=== PATIENT | female | born 1965 | race Caucasian/White ===

== ENCOUNTER → 2021-03-31 | Outpatient (CLI) | payer BC ==
[~2021-03-31] MED LIST: CATHETER FLUSH 10 ML SYR IV PRN; GADOBUTROL 15 MMOL/15 ML (GADAVIST) VIAL IV ONE; HEParin (CENTRAL IV FLUSH) 500 UNIT/5 ML SYR ONE
--- NOTE | 2021-03-31 14:36 | Diagnostic Imaging Report ---
MUGA scan INDICATION: Cardiotoxicity, baseline MUGA exam COMPARISON: There are no prior exams available for comparison. FINDINGS: This study was performed following intravenous administration of 29.0 mCi of tagged red blood cells. There is generalized distribution of the radiotracer throughout the cardiac system. The ejection fraction is 67%. IMPRESSION: The ejection fraction is 67%. Dictated by: Dictated on workstation # [id number]
--- NOTE | 2021-03-31 17:41 | Diagnostic Imaging Report ---
TECHNIQUE: Utilizing 1.5 Mikki magnet, patient was placed in a prone position with 8-channel dual breast coil utilized. Axial STIR precontrasted image and axial T1 fat-sat postcontrast high-resolution images obtained. Axial T2-weighted images precontrast, bilaterally, as well. Axial vibrant temporal images were obtained pre and post contrast with bolus technique utilized of gadolinium. Images are postcontrast immediately and subsequently for 7 minutes. Pre and post contrasted images are then evaluated with Whois for evaluation of possible angiogenesis. Sagittal postcontrast imaging also reviewed. INDICATION: Current history of right breast cancer COMPARISONS: 03/04/2021 and 01/19/2021. FINDINGS: The bilateral breasts demonstrate moderate background glandularity. The bilateral breasts demonstrate mild background enhancement. No significant axillary or internal mammary adenopathy. Mild edema noted within the left axillary region with significant signal dropout within the left axilla and left chest wall. This is felt to relate to soft tissue gas from recent chest tube. Small dependently layering left pleural effusion is also identified. Left-sided Port-A-Cath is present. A 5.2 x 1.6 x 2.5 cm enhancing mass lesion is noted within the posterior to middle depth of the right breast at approximately 8-9 o'clock. This appears to be in a segmental distribution. Additional foci of enhancement are seen in this segmental distribution extending anterior to this mass extending towards the nipple. Including this additional suspicious segmental non-mass enhancement, this entire region measures near 8 cm in anterior to posterior dimension. There is no clear fat plane between this enhancing mass and the underlying right pectoralis musculature with very minimal enhancement of the most anterior fibers of the right pectoralis musculature noted. This mass lesion is underlying the skin surface laterally by approximately 3 mm. This mass demonstrates predominantly progressive kinetics. Scattered foci of enhancement are noted throughout the left breast without suspicious mass or non-mass enhancement within the left breast. IMPRESSION: 5.2 x 2.5 cm enhancing mass within the lateral aspect of the right breast is consistent with biopsy-proven malignancy. Additional non-mass enhancement extending anterior to this location for a total dimension of near 8 cm in a segmental distribution likely relates to additional malignancy throughout the majority of the lateral right breast. Minimal enhancement of the most anterior fibers of the right pectoralis musculature is concerning for malignant invasion of the right pectoralis muscle by the immediately overlying biopsy-proven neoplasm. No evidence of malignancy within the left breast with edema and soft tissue gas within the left chest wall felt to relate to recent postprocedural changes. Small left pleural effusion. BI-RADS Category 6: Known malignancy Follow-up: Continued surgical consultation for known extensive malignancy within the right breast. ACR BI-RADS Category 6: Known biopsy proven malignancy. Result letter will be mailed to the patient. Note: At least 10% of breast cancer is not imaged by mammography. Dictated by: Dictated on workstation # [id number]
== END ==
LOC: CARD 03-26 13:00
PROVIDERS: ATTEND Internal Medicine Hematology & Oncology
DX: C50.411 Malignant neoplasm of upper-outer quadrant of right female breast (principal); J90 Pleural effusion, not elsewhere classified
CPT/HCPCS: 78472; A9560; C8908; 77049

== ENCOUNTER → 2021-06-19 | Outpatient (CLI) | payer BC ==
--- NOTE | 2021-06-19 11:57 | Diagnostic Imaging Report ---
Indication: Right breast cancer. Correlation is made with outside ultrasound from [facility] performed 03/04/2021. Sonographic interrogation upper outer right breast was performed. Previously noted hypoechoic mass 10:00 location, 5-6 images from the nipple is again noted, measuring 3.0 x 1.0 x 2.5 cm. This compares with 3.0 x 1.0 x 3.2 cm on prior exam. No new mass is detected. IMPRESSION: BI-RADS Category 6 Stable to perhaps slight decrease in size of known right breast malignancy at 10:00 location when compared with prior study from 03/04/2021. Dictated by: Dictated on workstation # [id number]
== END ==
LOC: RAD 10:45
PROVIDERS: ATTEND Internal Medicine Hematology & Oncology
DX: C50.411 Malignant neoplasm of upper-outer quadrant of right female breast (principal)
CPT/HCPCS: 76641

== ENCOUNTER → 2022-01-13 | Outpatient (RCR) | payer BC | END | disposition home or self-care (01) | LOC: ONC 12-16 08:30 | PROVIDERS: ATTEND Radiology Radiation Oncology | DX: Z51.0 Encounter for antineoplastic radiation therapy (principal); C50.411 Malignant neoplasm of upper-outer quadrant of right female breast | CPT/HCPCS: 77280; 77290; 77295; 77300; 77307; 77334; 77336; 77417; 77470; 99205 ==

== ENCOUNTER 2022-01-21 15:17 | Outpatient (RCR) | payer BC | END 2022-02-13 | disposition home or self-care (01) | LOC: ONC 15:17 | PROVIDERS: ATTEND Radiology Radiation Oncology | DX: Z51.0 Encounter for antineoplastic radiation therapy (principal); C50.411 Malignant neoplasm of upper-outer quadrant of right female breast | CPT/HCPCS: 77280; 77336; 77417 ==

== ENCOUNTER 2022-03-04 10:50 | Outpatient (RCR) | payer BC | END 2022-03-16 | disposition home or self-care (01) | LOC: ONC 10:50 | PROVIDERS: ATTEND Radiology Radiation Oncology | DX: C50.411 Malignant neoplasm of upper-outer quadrant of right female breast (principal); I10 Essential (primary) hypertension; K21.9 Gastro-esophageal reflux disease without esophagitis | CPT/HCPCS: 99213 ==